=== PATIENT | female | born 1990 | race African-American/Black ===

== ENCOUNTER 2018-01-08 17:10 | Observation (INO) | payer MEDICAID ==
[2018-01-08 19:11] LABS: Alcohol, Urine < 3.0 mg/dL (0-5); Amphetamine Screen, Urine NEGATIVE (NEGATIVE); Barbiturate Scree,Urine NEGATIVE (NEGATIVE); Benzodiazephine Screen, Urine NEGATIVE (NEGATIVE); Cannabinoid Screen, Urine NEGATIVE (NEGATIVE); Cocaine Screen, Urine NEGATIVE (NEGATIVE); Opiate Scree,Urine NEGATIVE (NEGATIVE); Phencyclidine Screen, Urine NEGATIVE (NEGATIVE)
[2018-01-08 19:16] LABS: Urine Bacteria FEW /hpf (None Seen); Urine Blood Negative /uL (Negative); Urine Mucus FEW (None Seen); Urine Specific Gravity 1.018 (1.001-1.035); Urine WBC 10 /hpf (0 - 5)
== END 2018-01-08 21:05 | disposition home or self-care (01) | DRG 566 ==
LOC: LDRP 17:10 → UNDODISOB 17:40
PROVIDERS: ADMIT Specialist; ATTEND Specialist
DX: O36.8130 Decreased fetal movements, third trimester, not applicable or unspecified (principal); O26.893 Other specified pregnancy related conditions, third trimester; M54.9 Dorsalgia, unspecified; R10.9 Unspecified abdominal pain; R10.2 Pelvic and perineal pain; O99.89 Other specified diseases and conditions complicating pregnancy, childbirth and the puerperium; Z3A.39 39 weeks gestation of pregnancy
CPT/HCPCS: 59025; 76805; 76818; 80307; 81001; 81002; G0378

== ENCOUNTER 2021-10-30 23:21 | Inpatient (IN) | payer MEDICAID ==
[~2021-10-30] VITALS: Ht 162.6 cm; Wt 102.4 kg
[2021-10-31 01:44] LABS: Basophils % (auto) 0.6 % (0.0-2.0); Eosinophils # (auto) 0.2 10 ^3/uL (0-0.8); Eosinophils % (auto) 2.2 % (0.0-7.0); Nucleated Red Blood Cells % 0.1 %
[2021-10-31 01:46] LABS: Basophils # (auto) 0.1 10 ^3/uL (0-0.2); Hemoglobin 9.3 g/dL (12.2-16.2); Lymphocytes # (auto) 2.6 10 ^3/uL (0.4-5.4); Lymphocytes % (auto) 30.1 % (10.0-50.0); Mean Corpuscular Hemoglobin 22.8 pg (28.0-32.0); Mean Corpuscular Hgb Conc. 30.9 g/dL (32.0-36.0); Mean Corpuscular Volume 73.8 fL (80.0-100.0); Monocytes # (auto) 0.7 10 ^3/uL (0-1.3); Monocytes % (auto) 7.9 % (0.0-12.0); Neutrophils % (auto) 59.2 % (37.0-80.0); Red Blood Cells 4.06 10^6/uL (4.0-5.20); White Blood Cell 8.5 10^3/uL (4.4-10.8)
[2021-10-31 01:58] LABS: Albumin 3.3 g/dL (3.4-5.0); Calcium 8.5 mg/dL (8.5-10.1); Potassium 3.6 mmol/L (3.5-5.1)
[2021-10-31 02:01] LABS: Bilirubin, Total 0.3 mg/dL (0.2-1.0); Total Protein 8.1 g/dL (6.4-8.2)
[2021-10-31 02:03] LABS: Red Cell Distribution Width 20.7 % (11.8-14.3)
[2021-10-31] MEDS ORDERED: KETOROLAC TROMETH 30 MG/ML 1ML VIAL IV ONE (15:30)
[2021-10-31] MEDS ORDERED: SODIUM CHLORIDE 0.9% 1,000 ML IV ONE (15:30)
[2021-10-31] MEDS ORDERED: hydrALAZINE HCL 20 MG/ML VL IV PRN (16:15)
[2021-11-01] VITALS (7 sets, daily range): BP systolic 107–118; BP diastolic 52–66
[2021-11-01 05:49] LABS: Basophils # (auto) 0 10 ^3/uL (0-0.2); Eosinophils # (auto) 0.2 10 ^3/uL (0-0.8); Monocytes # (auto) 0.5 10 ^3/uL (0-1.3)
[2021-11-01 05:52] LABS: Basophils % (auto) 0.3 % (0.0-2.0); Eosinophils % (auto) 3.2 % (0.0-7.0); Hematocrit 27.8 % (36.0-46.0); Hemoglobin 8.5 g/dL (12.2-16.2); Lymphocytes % (auto) 29.6 % (10.0-50.0); Mean Corpuscular Hemoglobin 22.1 pg (28.0-32.0); Mean Corpuscular Hgb Conc. 30.4 g/dL (32.0-36.0); Mean Corpuscular Volume 72.6 fL (80.0-100.0); Monocytes % (auto) 7.6 % (0.0-12.0); Neutrophils # (auto) 4.1 10 ^3/uL (1.6-8.6); Neutrophils % (auto) 59.3 % (37.0-80.0); Nucleated Red Blood Cells % 0.1 %; Red Blood Cells 3.83 10^6/uL (4.0-5.20); White Blood Cell 6.8 10^3/uL (4.4-10.8)
[2021-11-01 05:59] LABS: Albumin 2.5 g/dL (3.4-5.0); Calcium 8.1 mg/dL (8.5-10.1); Potassium 3.8 mmol/L (3.5-5.1)
[2021-11-01 06:03] LABS: BUN/Creatinine Ratio 15.4; Bilirubin, Total 0.2 mg/dL (0.2-1.0); Red Cell Distribution Width 20.1 % (11.8-14.3); Total Protein 6.3 g/dL (6.4-8.2)
[2021-11-01] MEDS: ENOXAPARIN SOD 40 MG/0.4 ML SYRINGE SC SCH (11:13)
[2021-11-01] MEDS: NICOTINE 7MG/24HR TOPICAL PATCH TD SCH (11:14)
[2021-11-01] MEDS: MORPHINE SULFATE INJ 2 MG/ml SYRG IV PRN ×2 (11:16→20:34)
[2021-11-02 05:08] VITALS: BP 116/69
[2021-11-02 08:00] VITALS: BP 112/59
[2021-11-02 09:00] VITALS: BP 112/59
[2021-11-02 09:12] LABS: Urine Bacteria MANY /hpf (None Seen); Urine Blood Negative /uL (Negative); Urine Specific Gravity 1.012 (1.001-1.035); Urine WBC 4 /hpf (0 - 5)
[2021-11-02 09:17] LABS: Alcohol, Urine < 3.0 mg/dL (0-10); Amphetamine Screen, Urine POSITIVE (NEGATIVE); Barbiturate Scree,Urine NEGATIVE (NEGATIVE); Benzodiazephine Screen, Urine NEGATIVE (NEGATIVE); Cannabinoid Screen, Urine NEGATIVE (NEGATIVE); Cocaine Screen, Urine NEGATIVE (NEGATIVE); Phencyclidine Screen, Urine NEGATIVE (NEGATIVE)
[2021-11-02 09:24] LABS: Opiate Scree,Urine NEGATIVE (NEGATIVE)
[2021-11-02] MEDS: ENOXAPARIN SOD 40 MG/0.4 ML SYRINGE SC SCH (10:00)
[2021-11-02] MEDS: NICOTINE 7MG/24HR TOPICAL PATCH TD SCH (10:01)
[2021-11-02 13:00] VITALS: BP 143/88
== END 2021-11-02 14:21 | disposition left against medical advice (07) | DRG 351 ==
LOC: EDBD 23:21 → EDUNIT# 23:21 → ER 23:21 → OVERFLOW 10-31 16:12 → EAST 10-31 23:20
PROVIDERS: ADMIT Registered Nurse; ATTEND Internal Medicine
DX: M76.891 Other specified enthesopathies of right lower limb, excluding foot (principal); E66.01 Morbid (severe) obesity due to excess calories; Z53.29 Procedure and treatment not carried out because of patient's decision for other reasons; Z20.822 Contact with and (suspected) exposure to COVID-19; G47.419 Narcolepsy without cataplexy; W18.39XA Other fall on same level, initial encounter; M72.2 Plantar fascial fibromatosis; Z59.02 Unsheltered homelessness; Z68.38 Body mass index [BMI] 38.0-38.9, adult; Z72.0 Tobacco use; Y93.89 Activity, other specified; Y92.89 Other specified places as the place of occurrence of the external cause; Y99.8 Other external cause status
CPT/HCPCS: 36415; 71045; 73560; 73590; 73610; 73700; 73721; 80053; 80307; 81001; 82550; 83735; 84702; 85025; 86850; 86900; 86901; 96361; 96374; 97163; G0378; J1885